=== PATIENT | female | born 1960 | race Hispanic/Latino ===

== ENCOUNTER 2017-06-22 17:12 | Inpatient (IN) | payer OTHER ==
[~2017-06-22] VITALS: Ht 172.7 cm; Wt 94.8 kg
[2017-06-22] MEDS ORDERED: MORPHINE SULFATE 4 MG/ML SYR IV STA (17:20)
[2017-06-22] MEDS ORDERED: SODIUM CHLORIDE 0.9% 1000ML 1,000 ML IV STA (17:20)
[2017-06-22] MEDS ORDERED: ONDANSETRON HCL INJ 2 MG/ML VIAL IV STA (17:20)
[2017-06-22] MEDS ORDERED: BELLADONNA ALK/PHENOBARBITAL 5 ML UDC PO ONE (17:30)
[2017-06-22] MEDS ORDERED: LIDOCAINE VISC 2% SOLN 15 ML UDC PO ONE (17:30)
[2017-06-22] MEDS ORDERED: MAGNESIUM/ALUMINUM/SIMETHICONE 30 ML UDC PO ONE (17:30)
[2017-06-22] MEDS ORDERED: DIATRIZOATE MEGL/DIATRIZOA SOD 30 ML BTL PO ONE (17:31)
[2017-06-22 18:03] LABS: CLARITY,URINE SL CLOUDY (CLEAR); COLOR,URINE YELLOW (YELLOW)
[2017-06-22 18:04] LABS: BILIRUBIN,URINE NEGATIVE (NEGATIVE); KETONES,URINE NEGATIVE (NEGATIVE); LEUKOCYTE ESTERASE ,URINE NEGATIVE (NEGATIVE); NITRITE,URINE NEGATIVE (NEGATIVE); PREGNANCY TEST, URINE NEGATIVE (NEGATIVE); PROTEIN,URINE DIPSTICK TRACE (NEGATIVE); URINE UROBILINOGEN 0.2 mg/dL (0.2 - 1)
[2017-06-22 18:17] LABS: BACTERIA,URINE FEW /HPF; EPITHELIAL CELLS,URINE MODERATE /LPF; RBC,URINE 0-5 /HPF (0-5); WBC,URINE (MAN) 0-5 /HPF (0-5)
[2017-06-22] MEDS ORDERED: MORPHINE SULFATE 2 MG/ML SYR ONE (18:48)
[2017-06-22 18:53] LABS: BASOPHILS % 0.4 % (0.0-1.0); HEMATOCRIT 40.3 % (34.2-44.1); HEMOGLOBIN 14.2 g/dL (12.0-16.0); LYMPHOCYTES # (AUTO) 1.4 (1.0-3.2); LYMPHOCYTES % 16.3 % (18.0-39.1); MEAN CORPUSCULAR HEMOGLOBIN 33.3 pg (28-32); MEAN CORPUSCULAR HGB CONC 35.2 g/dL (31-35); MEAN CORPUSCULAR VOLUME 94.4 fL (81-99); MONOCYTES # (AUTO) 0.6 (0.2-0.8); MONOCYTES % 7.2 % (4.4-11.3); NEUTROPHILS # (AUTO) 6.3 (2.1-6.9); NEUTROPHILS % 75.6 % (38.7-80.0); PLATELET COUNT 164 x10e3/uL (140-360); RED BLOOD COUNT 4.27 x10e6/uL (3.6-5.1); RED CELL DISTRIBUTION WIDTH 12.1 % (11.7-14.4)
--- NOTE | 2017-06-22 19:05 | Diagnostic Imaging Report ---
PROCEDURE:US GALLBLADDER COMPARISON:None. INDICATIONS:ABDOMEN PAIN FINDINGS: LIVER: Size:13.4 cm in the right nidclavicular line, normal Appearance:Increased echogenicity, smooth contour Mass:No focal masses GALLBLADDER: Stones/Sludge:Small stone in gallbladder neck. Appearance:Mild wall thickening measuring 0.4 cm. No pericholecystic fluid or hydrops. Gallbladder is mildly distended measuring 4.1 cm in diameter. Sonographic Duenas's Sign:Negative BILE DUCTS: Intrahepatic Ducts:No dilation Extrahepatic Ducts:Common bile duct measures 1 cm, dilated PANCREAS: Visualized portions of the neck are normal. RIGHT KIDNEY: Size:10.3 cm in length Echogenicity:Normal Collecting System:No hydronephrosis Stone:None Cyst/Mass:None VESSELS: Aorta:Visualized portions are normal. Inferior Vena Cava:Visualized portions are normal. Main Portal Vein:1 cm, normal size with hepatopetal flow. FREE FLUID: No ascites or pleural effusions. CONCLUSION: 1. Cholelithiasis with mild gallbladder wall thickening and mild distension. Early acute cholecystitis not excluded. 2. Dilated CBD measuring 1 cm which raises the possibility of choledocholithiasis. Consider MRCP for further evaluation. 3. Hepatic steatosis. Dictated by: Kaden Bhatt M.D. on 06/22/2017 at 19:06 Electronically approved by: Kaden Bhatt M.D. on 06/22/2017 at 19:06
[2017-06-22 19:12] LABS: ALANINE AMINOTRANSFERASE 30 IU/L (0-55); ALBUMIN 4.2 g/dL (3.5-5.0); ALBUMIN/GLOBULIN RATIO 1.1 (0.8-2.0); ALKALINE PHOSPHATASE 72 IU/L (40-150); AMYLASE 65 U/L (25-125); ANION GAP 13.1 mmol/L (8-16); BLOOD UREA NITROGEN 7 mg/dL (7-26); BUN/CREATININE RATIO 10 (6-25); CALCIUM 9.5 mg/dL (8.4-10.2); CARBON DIOXIDE 30 mmol/L (22-29); CHLORIDE 93 mmol/L (98-107); CREATINE KINASE 58 IU/L (29-168); CREATININE, SERUM 0.67 mg/dL (0.57-1.11); EST GLOMERULAR FILTRATION RATE > 60 ML/MIN (60-); GLUCOSE 117 mg/dL (74-118); LIPASE 25 U/L (8-78); POTASSIUM 3.1 mmol/L (3.5-5.1); SODIUM 133 mmol/L (136-145)
[2017-06-22] MEDS ORDERED: HYDRALAZINE HCL 10 MG TAB PO ONE (19:15)
[2017-06-22] MEDS ORDERED: IOPAMIDOL 370 MG/ML 200 ML INFUS..BTL INJ ONE (19:36)
[2017-06-22] MEDS ORDERED: SODIUM CHLORIDE 0.9% 50ML 50 ML ONE (19:36)
--- NOTE | 2017-06-22 20:02 | Diagnostic Imaging Report ---
EXAM: CT of the abdomen and pelvis WITH contrast HISTORY: Pain, right upper quadrant, vomiting, rule out diverticulitis, small bowel obstruction COMPARISON: None available. TECHNIQUE: The abdomen and pelvis were scanned utilizing a multidetector helical scanner. Coronal and sagittal reformats are provided. PROTOCOL: Routine IV CONTRAST: 100 cc of Isovue-370. ORAL CONTRAST: Dilute Gastrografin RADIATION DOSE: Total DLP: 805.74 mGy*cm Estimated effective dose: (DLP x 0.015 x size factor) COMPLICATIONS: None FINDINGS: LOWER THORAX: Unremarkable. HEPATOBILIARY: No focal hepatic lesions. No biliary ductal dilatation. A lobulated 1 cm calcification versus 2 adjacent calcifications in the region of the gallbladder neck. The gallbladder wall appears diffusely thickened with questionable adjacent soft tissue fat stranding. SPLEEN: No splenomegaly. PANCREAS: No focal masses or ductal dilatation. ADRENALS: No discrete adrenal nodule. KIDNEYS/URETERS: A 9 mm calcification near the inferior pole of the right kidney. No hydronephrosis. PELVIC ORGANS/BLADDER: The visualized pelvic organs appear unremarkable. PERITONEUM / RETROPERITONEUM: No free air or fluid. LYMPH NODES: No pathologically enlarged lymph node. VESSELS: Diffuse scattered atherosclerotic vascular calcifications. GI TRACT: No distention or wall thickening identified. Colonic diverticuli, most notably the sigmoid colon, without evidence of acute diverticulitis. A faint tubular density near the tip of the cecum, is likely normal appendix. BONES: No aggressive osseous lesion or acute fracture. SOFT TISSUES: Unremarkable. IMPRESSION: 1. Cholelithiasis with diffuse gallbladder wall thickening, correlate with the reported ultrasound from this visit which is not available for comparison. 2. A 9 mm nonobstructing right renal calculus. 3. Sigmoid diverticulosis without evidence of acute diverticulitis. 4. No bowel obstruction. Discussed with Dr. Abdalla via phone on June 22, 2017 at 0287. Signed by: Dr. Avery Scott D.O., M.M.M. on 06/22/2017 7:59 PM
[2017-06-22] MEDS ORDERED: ONDANSETRON HCL INJ 2 MG/ML VIAL IV PRN (20:15)
[2017-06-22] MEDS ORDERED: SODIUM CHLORIDE FLUSH 10 ML SYR INJ PRN (20:15)
[2017-06-22] MEDS ORDERED: MORPHINE SULFATE 2 MG/ML SYR IV PRN (20:15)
--- OUTSIDE RECORDS SUMMARY | 2017-06-22 21:09 | XMS REPORT ---
Author Author [facility] Address Unknown Phone Unavailable Care Team Providers Care Director [employer] Name Role Phone IRENE ABDALLA Unavailable Unavailable Problems This patient has no known problems. Allergies, Adverse Reactions, Alerts This patient has no known allergies or adverse reactions. Medications This patient has no known medications. Results Test Description Test Time Test Comments Text Results Atomic Results Result Comments US GALLBLADDER [place] [address] Patient Name: HOMAR ORDAZ MR #: [id number] : 1960 Age/Sex: 57/F Req #: [id number] Adm Physician: Ordered by: ADIA ALONZO SUMMER NANNY Report #: [id number] Location: ER Room/Bed: Procedure: [id number] US/US GALLBLADDER Exam Date: Exam Time: REPORT STATUS: Signed PROCEDURE: US GALLBLADDER COMPARISON: None. INDICATIONS: ABDOMEN PAIN FINDINGS: LIVER: Size: 13.4 cm in the right nidclavicular line, normal Appearance: Increased echogenicity, smooth contour Mass: No focal masses GALLBLADDER: Stones/Sludge: Small stone in gallbladder neck. Appearance: Mild wall thickening measuring 0.4 cm. No pericholecystic fluid or hydrops. Gallbladder is mildly distended measuring 4.1 cm in diameter. Sonographic Duenas's Sign: Negative BILE DUCTS: Intrahepatic Ducts: No dilation Extrahepatic Ducts: Common bile duct measures 1 cm, dilated PANCREAS: Visualized portions of the neck are normal. RIGHT KIDNEY: Size: 10.3 cm in length Echogenicity: Normal Collecting System: No hydronephrosis Stone: None Cyst/Mass: None VESSELS: Aorta: Visualized portions are normal. Inferior Vena Cava: Visualized portions are normal. Main Portal Vein: 1 cm, normal size with hepatopetal flow. FREE FLUID: No ascites or pleural effusions. CONCLUSION: 1. Cholelithiasis with mild gallbladder wall thickening and mild distension. Early acute cholecystitis not excluded. 2. Dilated CBD measuring 1 cm which raises the possibility of choledocholithiasis. Consider MRCP for further evaluation. 3. Hepatic steatosis. Dictated by: Kaden Rubin M.D. on 06/22/2017 at 19:06 Electronically approved by: Kaden Rubin M.D. on 06/22/2017 at 19:06 Dictated By: KADEN RUBIN MD 05 Transcribed By: BLAZE on 06/22/171905 COPY TO: ADIA ALONZO SUMMER NANNY CT ABDOMEN/PELVIS W [place] [address] Patient Name: HOMAR ORDAZ MR #: [id number] : 1960 Age/Sex: 57/F Req # : [id number] Adm Physician: Ordered by: ADIA ALONZO SUMMER NANNY Report #: [id number] Location: ER Room/Bed: Procedure: [id number] CT/CT ABDOMEN/PELVIS W Exam Date: 06/22/17 Exam Time : 1930 REPORT STATUS: Signed EXAM: CT of the abdomen and pelvis WITH contrast HISTORY: Pain, right upper quadrant, vomiting, rule out diverticulitis, small bowel obstruction COMPARISON: None available. TECHNIQUE: The abdomen and pelvis were scanned utilizing a multidetector helical scanner. Coronal and sagittal reformats are provided. PROTOCOL: Routine IV CONTRAST: 100 cc of Isovue-370. ORAL CONTRAST: Dilute Gastrografin RADIATION DOSE: Total DLP : 805.74 mGy*cm Estimated effective dose: (DLP x 0.015 x size factor) COMPLICATIONS: None FINDINGS: LOWER THORAX : Unremarkable. HEPATOBILIARY: No focal hepatic lesions. No biliary ductal dilatation. A lobulated 1 cm calcification versus 2 adjacent calcifications in the region of the gallbladder neck. The gallbladder wall appears diffusely thickened with questionable adjacent soft tissue fat stranding. SPLEEN: No splenomegaly. PANCREAS: No focal masses or ductal dilatation. ADRENALS: No discrete adrenal nodule. KIDNEYS/URETERS: A 9 mm calcification near the inferior pole of the right kidney. No hydronephrosis. PELVIC ORGANS/BLADDER: The visualized pelvic organs appear unremarkable. PERITONEUM / RETROPERITONEUM: No free air or fluid. LYMPH NODES: No pathologically enlarged lymph node. VESSELS: Diffuse scattered atherosclerotic vascular calcifications. GI TRACT: No distention or wall thickening identified. Colonic diverticuli, most notably the sigmoid colon, without evidence of acute diverticulitis. A faint tubular density near the tip of the cecum, is likely normal appendix. BONES: No aggressive osseous lesion or acute fracture. SOFT TISSUES: Unremarkable. IMPRESSION: 1. Cholelithiasis with diffuse gallbladder wall thickening, correlate with the reported ultrasound from this visit which is not available for comparison. 2. A 9 mm nonobstructing right renal calculus. 3. Sigmoid diverticulosis without evidence of acute diverticulitis. 4. No bowel obstruction. Discussed with Dr. Abdalla via phone on June 22, 2017 at 1857. Signed by: Dr. Linwood Scott D.O., M.M.M. on 06/22/2017 7:59 PM Dictated By : LINWOOD SCOTT DO 58 Transcribed By: JONAH on 06/22/171958 COPY TO: ADIA ALONZO NP
[2017-06-22] MEDS: PIPER-TAZ 3.375 GM 50 ML IV SCH (21:53)
[2017-06-22] MEDS ORDERED: PIPER-TAZ 3.375 GM 3.375 GM/100 ML BAG IV SCH (22:00)
--- NOTE | 2017-06-22 22:44 | History and Physical ---
No dictation, length 00:01. Job#: [id number] GE
--- NOTE | 2017-06-22 23:09 | Consultation ---
DATE OF CONSULTATION: June 22, 2017 GI CONSULT NOTE REFERRING PHYSICIAN: Fanny Ibrahim MD REASONS FOR CONSULT 1. Possible acute cholecystitis. 2. Dilated common bile duct. HISTORY OF PRESENTING ILLNESS: A 57-year-old very pleasant female with the past medical history of hypertension, hyperlipidemia, GERD, obesity. She has been taking omeprazole 1 tablet daily for many years. This controls her reflux symptoms. However, yesterday, she ate her supper very late. Went off to bed just after eating. At 3 o'clock in the morning, she had acute onset of burning in the midepigastric region radiating into the upper chest. She felt like that this is breakthrough reflux. However, she did not take any Maalox, Mylanta, Rolaids or omeprazole. The pain recurred multiple times throughout the day. Therefore, she decided to seek medical assistance. She showed herself to her primary care physician, who examined her and thought she may be having some gallbladder issues. Therefore, she was directed to get evaluated in the emergency room. Here, she was noted to be afebrile, hemodynamically stable. Blood work reveals normal liver enzymes, normal lipase levels and normal electrolytes, normal peripheral cell count. Ultrasound of the abdomen showed gallstones, with mild gallbladder wall thickening, mild gallbladder distention, and she was also noted to have common bile duct dilated to 1 cm with the possibility of choledocholithiasis. Liver was noted fatty. She also underwent the CT of abdomen and pelvis with oral and IV contrast. This showed gallbladder wall thickening with the gallstones, and 9-mm nonobstructing right renal calculus. Subsequently, she got admitted through the emergency room for evaluation of cholecystectomy and rule out choledocholithiasis. REVIEW OF SYSTEMS: Twelve-point system reviewed, symptomatology is limited to GI system. PAST MEDICAL HISTORY: Hypertension, hyperlipidemia, GERD. PAST SURGICAL HISTORY: times 3. SOCIAL HISTORY: . Lives with the . She drinks 4-6 cans of beer almost every day for last 5-7 years. ALLERGIES: NO KNOWN DRUG ALLERGIES. HOME MEDICATIONS: Omeprazole and some medication for cholesterol and high blood pressure. The patient does not remember the name of the medication. EXAM VITAL SIGNS: Temperature 98.7, pulse ranging from 99-109, respiration 18, blood pressure 168/90, oxygen saturation 98% on room air. GENERAL: Not in any acute distress. Obese body habitus. HEENT: Oral mucosa is moist. Anicteric sclerae. No neck or axillary adenopathy. CVS: S1, S2. Regular. LUNGS: Bilaterally grossly clear. ABDOMEN: Soft, obese. Palpable midepigastric tenderness. Duenas sign is negative. No mass or hernia. Positive bowel sounds. EXTREMITIES: Warm. No leg edema. LAB: WBC 8.33, hemoglobin 14.2, hematocrit 40.3, MCV 94.4, platelet count 164,000. Sodium 133, potassium 3.1, chloride 93, bicarb 30, BUN 7, creatinine 0.67. Liver enzymes normal. Amylase, lipase normal. Urinalysis showed blood 2+, nitrite negative, bilirubin negative, leukocyte esterase negative, WBC 0-5. CT of the abdomen and pelvis with IV and oral contrast showed 1. Cholelithiasis with diffuse gallbladder wall thickening, correlate with reported ultrasound from this visit, which she is not available for comparison. 2. A 9-mm nonobstructing right renal calculus. 3. Sigmoid diverticulosis without evidence of acute diverticulitis. 4. No bowel obstruction. Ultrasound of the abdomen showed 1. Cholelithiasis with mild gallbladder wall thickening and mild distention. Early acute cholecystitis not excluded. 2. Dilated CBD measuring about 1 cm, which raises the possibility of choledocholithiasis. Consider MRCP for further evaluation. 3. Hepatic steatosis. IMPRESSIONS 1. Possible acute cholecystitis given radiological appearance of the gallbladder along with the gallstone. 2. Dilated common bile duct up to 1 cm is suspicious for possible choledocholithiasis. 3. Fatty liver. PLAN: At this point in time, patient's abdominal pain has completely resolved. She is hungry. Therefore, I can allow her to eat. N.p.o. past midnight until patient is evaluated by surgery. We are going to put the consult for Dr. Segura. MRCP to rule out choledocholithiasis. Add omeprazole or pantoprazole 40 mg twice daily. Renew antihypertensive medication from home. Further recommendation based upon MRCP results. If MRCP is positive, obviously, patient will have to undergo ERCP. If MRCP is negative, then patient will go for cholecystectomy directly. I thank Dr. Ibrahim for allowing me to participate in the care of this patient. Job#: [id number] CQ
[2017-06-23] MEDS: PIPER-TAZ 3.375 GM 50 ML IV SCH ×3 (05:40→21:32)
[2017-06-23 06:02] LABS: BASOPHILS % 0.5 % (0.0-1.0); EOSINOPHILS % 0.3 % (0.0-6.0); HEMATOCRIT 37.3 % (34.2-44.1); HEMOGLOBIN 13.2 g/dL (12.0-16.0); LYMPHOCYTES # (AUTO) 2.5 (1.0-3.2); LYMPHOCYTES % 43.1 % (18.0-39.1); MEAN CORPUSCULAR HEMOGLOBIN 33.3 pg (28-32); MEAN CORPUSCULAR HGB CONC 35.4 g/dL (31-35); MEAN CORPUSCULAR VOLUME 94.2 fL (81-99); MONOCYTES # (AUTO) 0.5 (0.2-0.8); MONOCYTES % 8.5 % (4.4-11.3); NEUTROPHILS # (AUTO) 2.7 (2.1-6.9); NEUTROPHILS % 47.4 % (38.7-80.0); PLATELET COUNT 162 x10e3/uL (140-360); RED BLOOD COUNT 3.96 x10e6/uL (3.6-5.1); RED CELL DISTRIBUTION WIDTH 12.1 % (11.7-14.4)
[2017-06-23 06:33] LABS: ANION GAP 12.5 mmol/L (8-16); BLOOD UREA NITROGEN 7 mg/dL (7-26); BUN/CREATININE RATIO 11 (6-25); CALCIUM 9.2 mg/dL (8.4-10.2); CARBON DIOXIDE 29 mmol/L (22-29); CHLORIDE 102 mmol/L (98-107); CREATININE, SERUM 0.66 mg/dL (0.57-1.11); EST GLOMERULAR FILTRATION RATE > 60 ML/MIN (60-); GLUCOSE 99 mg/dL (74-118); POTASSIUM 3.5 mmol/L (3.5-5.1); SODIUM 140 mmol/L (136-145)
[2017-06-23] MEDS ORDERED: LISINOPRIL-HCT1 EAC2 PO (07:01)
[2017-06-23] MEDS ORDERED: SIMVASTATIN20 MG PO (07:01)
[2017-06-23] MEDS: PANTOPRAZOLE SOD 40 MG TABEC PO SCH ×2 (09:00→16:05)
[2017-06-23 12:52] VITALS: BP 165/77
[2017-06-23] MEDS ORDERED: SODIUM CHLORIDE 0.9% 250ML 250 ML ONE (13:32)
[2017-06-23 14:11] VITALS: BP 165/77
[2017-06-23 16:16] VITALS: BP 144/71
--- NOTE | 2017-06-23 19:37 | Consultation ---
DATE OF CONSULTATION: June 23, 2017 CHIEF COMPLAINT: Epigastric discomfort with reflux. HISTORY OF PRESENT ILLNESS: The patient is a 57-year-old female with a known history of reflux esophagitis treated with PPI in the past. The patient experienced epigastric discomfort with increased heartburn symptoms yesterday after eating a heavy meal late in the night. The patient denies vomiting, but admits to some nausea and bloating. No fever, chills or diarrhea. PAST MEDICAL HISTORY: Significant for hypertension, hyperlipidemia, obesity with GERD. SURGICAL HISTORY: Positive for . ALLERGIES: THE PATIENT HAS NO DRUG ALLERGIES. SOCIAL HISTORY: The patient has no history of smoking, but drinks beer occasionally. REVIEW OF SYSTEMS: No chest pain or shortness of breath or cough. PHYSICAL EXAMINATION VITAL SIGNS: Stable. Afebrile. GENERAL: She is awake, alert and in mild discomfort. HEENT: Sclerae nonicteric. NECK: Supple. LUNGS: Clear. HEART: Regular rate and rhythm. ABDOMEN: Mildly obese with some guarding in the epigastrium without rebound tenderness. EXTREMITIES: Without cyanosis or edema. Her white cell count is 5.7, hemoglobin of 13. Creatinine of 0.6. Liver function tests within normal limits. Lipase 25. CT of the abdomen showed gallstones with wall thickening of the gallbladder. Ultrasound showed the same gallstone with bile duct size at 1 cm. ASSESSMENT 1. Cholelithiasis and probable cholecystitis. 2. Dilated common bile duct seen. PLAN: The patient is recommend to have a cholecystectomy. Since she cannot tolerate an MRI, will proceed with intraoperative cholangiogram. Thank you for the consultation. Job#: [id number] IA
[2017-06-23 20:34] VITALS: BP 167/78
[2017-06-23] MEDS: SIMVASTATIN 20 MG TAB PO SCH (21:08)
[2017-06-23 23:05] VITALS: BP 167/78
[2017-06-24] VITALS (7 sets, daily range): BP systolic 151–181; BP diastolic 78–98
[2017-06-24] MEDS: PIPER-TAZ 3.375 GM 50 ML IV SCH ×3 (05:39→21:51)
[2017-06-24] MEDS: PANTOPRAZOLE SOD 40 MG TABEC PO SCH ×2 (07:30→16:30)
[2017-06-24] MEDS ORDERED: PANTOPRAZOLE 40 MG 10ML VIAL IV STA (07:59)
[2017-06-24] MEDS ORDERED: DEXTROSE 5%/0.45% SOD CHL 1,000 ML IV ONE (08:00)
[2017-06-24] MEDS: HYDRALAZINE HCL 20 MG/ML VIAL IV PRN (08:59)
[2017-06-24] MEDS: HYDROCHLOROTHIAZIDE 25 MG TAB PO SCH (09:00)
[2017-06-24] MEDS: LISINOPRIL 10 MG TAB PO SCH (09:00)
--- NOTE | 2017-06-24 16:00 | Progress Note ---
DATE: June 23, 2017 SUBJECTIVE: Patient reporting no abdominal pain. She refused to undergo MRCP due to claustrophobia. REVIEW OF SYSTEMS: GENERAL: No fever or chills. CVS: No chest pain, palpitation. RESPIRATORY: No cough or expectoration. INPATIENT MEDICATIONS: Reviewed, she is getting intravenous Zosyn along with other medication. PHYSICAL EXAMINATION: VITAL SIGNS: Temperature 96.3, pulse 75 to 104, respiration 16 to 18, blood pressure 167/78 to 144/71, oxygen saturation 98% on room air. GENERAL: Not in any acute distress. HEENT: Moist mucous membranes. Anicteric sclerae. CVS: S1 and S2 regular. LUNGS: Bilaterally grossly clear. ABDOMEN: Soft. Right upper quadrant tenderness, no epigastric tenderness. No mass or hernia. Positive bowel sounds. EXTREMITIES: Warm. No leg edema. LABS: WBC 5.75, hemoglobin 13.2, hematocrit 37.3, MCV 94.2, platelet count 162,000. Sodium 140, potassium 3.5, chloride 102, bicarb 29, BUN 7, creatinine 0.66. Liver enzymes not done today. IMPRESSION: 1. Probable acute cholecystitis. 2. Dilated common bile duct, retained common bile duct stone cannot be excluded. Patient refused to undergo magnetic resonance cholangiopancreatography due to claustrophobia. PLAN: Proceed with laparoscopic cholecystectomy, perform intraoperative cholangiogram, if it is positive, patient can undergo ERCP. I discussed this with Dr. Segura, he agrees to do IOC during cholecystectomy. In the interim, continue present medical management. Job#: [id number]
[2017-06-24] MEDS ORDERED: BUPIVACAINE 0.25%/EPI 30ML SDV INJ ONE ×2 (17:01→17:06)
[2017-06-24] MEDS ORDERED: IOPAMIDOL 300MG/ML 50ML INFUS..BTL IV ONE ×2 (17:02→17:07)
[2017-06-24] MEDS ORDERED: NEOSTIGMINE 5 MG/5ML SYR ONE (17:52)
[2017-06-24] MEDS ORDERED: SEVOFLURANE INHAL SOLN 250 ML PEN BTL ONE (17:52)
[2017-06-24] MEDS ORDERED: ONDANSETRON HCL INJ 2 MG/ML VIAL ONE (17:52)
[2017-06-24] MEDS ORDERED: ATROPINE SULFATE 1 MG/ML VIAL ONE (17:52)
[2017-06-24] MEDS ORDERED: DEXAMETHASONE SOD PHOS INJ 4 MG/ML VIAL ONE (17:52)
[2017-06-24] MEDS ORDERED: LABETALOL HCL 5 MG/ML 20ML VIAL ONE (17:52)
[2017-06-24] MEDS ORDERED: KETOROLAC TROMETHAMINE 30 MG/ML VIAL ONE (17:52)
[2017-06-24] MEDS ORDERED: PROPOFOL IV EMULSION 10 MG/ML 20 ML VIAL ONE (17:52)
[2017-06-24] MEDS ORDERED: ROCURONIUM BROMIDE 10 MG/ML 5ML VIAL ONE (17:52)
[2017-06-24] MEDS ORDERED: LIDOCAINE HCL 2% LOCAL INJ 5 ML SDV VIAL INJ ONE (17:52)
[2017-06-24] MEDS ORDERED: MIDAZOLAM HCL 2 MG/2 ML VIAL ONE (18:04)
[2017-06-24] MEDS ORDERED: FENTANYL CITRATE/PF 100MCG/2 ML INJ ONE (18:04)
[2017-06-24] MEDS ORDERED: HYDRALAZINE HCL 20 MG/ML VIAL ONE (19:13)
--- NOTE | 2017-06-24 20:02 | Operative Report ---
DATE OF PROCEDURE: June 24, 2017 PREOPERATIVE DIAGNOSIS: Cholecystitis and dilated bile duct. POSTOPERATIVE DIAGNOSIS: Cholecystitis and dilated bile duct. OPERATIVE PROCEDURES 1. Laparoscopic cholecystectomy. 2. Cholangiogram. SOLAR PHOTOVOLTAIC INSTALLER: None. ANESTHESIA: General endotracheal, Dr. Whitney. INDICATIONS: A 57-year-old female with epigastric abdominal pain and gallstone noted on ultrasound. Bile duct was noted be dilated. Patient had consented for laparoscopic cholecystectomy with intraoperative cholangiogram since she could not tolerate MRCP. PROCEDURE FINDINGS: Normal common bile duct without filling defect on cholangiogram. DESCRIPTION OF PROCEDURE: The patient was brought to the OR intubated. Abdomen prepped with alcohol and draped in a sterile fashion. An infraumbilical incision is made. A 10-mm port inserted. Insufflation begun. Under direct vision, other port site placed in the midepigastric and right upper quadrant. Gallbladder grossly inflamed and distended. Fundus retracted in a cephalad direction. Neck of the gallbladder retracted laterally. With blunt and sharp dissection, the cystic artery is isolated, triply clipped and divided. Cystic duct was dissected down to the junction with the common bile duct, and the cystic duct is then clipped high on the neck of the gallbladder. A small radial incision is made in the cystic duct, and a cholangiogram catheter is inserted and clamped in place. Intraoperative cholangiogram is carried out with full strength Isovue contrast that showed dilated bile duct without filling defect. A dye went into the duodenum without obstruction. At this point, the catheter was removed and the cystic duct which was then triply clipped. The gallbladder detached from liver with cautery and taken out through the umbilical port site. Operative field was irrigated and hemostasis achieved. All ports were removed under direct vision. Fascia closed with interrupted 0 Vicryl. Skin closed with subcuticular stitch. The patient was extubated and transported to the recovery room. Estimated loss 5 mL. Job#: [id number] BENY
[2017-06-24] MEDS: SIMVASTATIN 20 MG TAB PO SCH (20:31)
[2017-06-25 00:52] VITALS: BP 154/76
[2017-06-25 04:00] VITALS: BP 170/78
[2017-06-25] MEDS: HYDRALAZINE HCL 20 MG/ML VIAL IV PRN ×2 (04:26→13:16)
[2017-06-25] MEDS: PIPER-TAZ 3.375 GM 50 ML IV SCH ×2 (05:13→13:16)
[2017-06-25 06:10] VITALS: BP 149/70
[2017-06-25] MEDS: PANTOPRAZOLE SOD 40 MG TABEC PO SCH (07:30)
[2017-06-25 08:11] VITALS: BP 134/61
[2017-06-25] MEDS: HYDROCHLOROTHIAZIDE 25 MG TAB PO SCH (10:18)
[2017-06-25] MEDS: LISINOPRIL 10 MG TAB PO SCH (10:18)
[2017-06-25 10:28] VITALS: BP 135/76
--- NOTE | 2017-06-25 18:31 | Discharge Summary ---
PRIMARY CARE DOCTOR: Dr. Gloria Mobley. FINAL DIAGNOSIS: Acute cholecystitis. SECONDARY DIAGNOSIS 1. Uncontrolled hypertension. 2. Gastroesophageal reflux disease. 3. Dyslipidemia. CONSULTANTS 1. Dr. Segura, general surgery. 2. Dr. Carter, GI. PROCEDURES/STUDIES PERFORMED 1. Laparoscopic cholecystectomy. 2. Computed tomography angiography of the abdomen and pelvis. 3. Abdominal ultrasound. HISTORY: Per H\T\P. HOSPITAL COURSE: Patient was admitted for acute cholecystitis. There was some question about dilated common bile duct. Patient could not tolerate MRCP. She underwent a laparoscopic cholecystectomy. Intraoperative cholangiogram was done, which was normal. Today is postop day number 1. Patient will be discharged to home. She will follow up with Dr. Segura next week. CONDITION ON DISCHARGE: Stable. DISCHARGE MEDICATIONS: Please see medication reconciliation form. Patient was seen and examined today. Took 32 minutes total to discharge this patient. CHIDI CHURCH M.D. Job#: [id number] EV cc:GLORIA MOBLEY MD
--- NOTE | 2017-07-04 11:58 | Diagnostic Imaging Report ---
PROCEDURE: INTRAOPERATIVE CHOLANGIOGRAM COMPARISON: CT abdomen and pelvis 06/22/2017. INDICATIONS: cholecystitis TECHNIQUE: Intraoperative cholangiogram was performed by Dr. Ibrahim. Multiple coned down abdominal spot fluoroscopic images from the procedure were submitted. The opacification of the common bile duct was noted. The cystic duct was opacified. No extravasation of contrast was noted. No filling defect. IMPRESSION: Please see the surgical report for full clinical details. Dictated by: Arsalan Ac M.D. on 07/04/2017 at 11:59 Electronically approved by: Arsalan Ac M.D. on 07/04/2017 at 11:59
== END 2017-06-25 14:15 | disposition home or self-care (01) | DRG 419 ==
LOC: ER 17:12 → ERHOLD 20:03 → MED/SURG 06-23 11:58
PROVIDERS: ADMIT Internal Medicine; ATTEND Internal Medicine
PROC: BF131ZZ Fluoroscopy of Gallbladder and Bile Ducts using Low Osmolar Contrast (ICD-10-PCS; 2017-06-24)
PROC: 0FT44ZZ Resection of Gallbladder, Percutaneous Endoscopic Approach (ICD-10-PCS; principal; 2017-06-24 17:16)
DX: K80.12 Calculus of gallbladder with acute and chronic cholecystitis without obstruction (principal); K76.0 Fatty (change of) liver, not elsewhere classified; K21.9 Gastro-esophageal reflux disease without esophagitis; I10 Essential (primary) hypertension; K82.8 Other specified diseases of gallbladder; E66.9 Obesity, unspecified; Z68.31 Body mass index [BMI] 31.0-31.9, adult
CPT/HCPCS: 36415; 74177; 74300; 76705; 80048; 80053; 81001; 81025; 82150; 82550; 82553; 83690; 84484; 85025; 88304; 93005; 99284; J0360; J0461; J1100; J1885; J2001; J2250; J2270; J2405; J2543; J7030; J7050; Q9967